=== PATIENT | female | born 1955 | race Caucasian/White ===

== ENCOUNTER → 2018-07-20 | Day surgery (SDC) | payer BC ==
[~2018-07-20] MED LIST: CALCIUM500 MG PO; FENTANYL CITRATE/PF 100MCG/2 ML INJ ONE; IBUPROFEN; IBUPROFEN PO; LISINOPRIL5 MG PO; METOPROLOL SUCC50 MG PO; MIDAZOLAM HCL 2 MG/2 ML VIAL ONE; MULTI-VITAMIN1 EACH PO; PROPOFOL IV EMULSION 10 MG/ML 50 ML VIAL ONE; TARCEVA150 MG PO; VIT D3 PO
--- OUTSIDE RECORDS SUMMARY | 2018-07-20 12:40 | XMS REPORT | Clinical Summary ---
Author Author [employer] [facility] Address Unknown Phone Unavailable Care Team Providers Care Home Mission Worker Name Role Phone Hugh Herring MD PCP Allergies Comments Active Allergy Reactions Severity Noted Date Pt stated that she still had delayed reaction with redness on her chest "like a sunburn" even with pre-meds of Prednisone 50mg PO x3 along with Benadryl 50mg PO x1. No other signs or symptoms per patient. 11/29/17: Okay to scan with IV contrast today per radiologist. Dr. Finley. Post CT scan: No signs or symptoms of reaction. Iodinated Contrast- Oral Rash Low 10/21/2015 And Iv Dye Medications End Date Status Medication Sig Dispensed Refills Start Date Active metoprolol succinate XL Take 12.5 mg 0 (TOPROL-XL) 25 mg 24 hr by mouth. 8 tablet Active lisinopril Take 5 mg by 0 (PRINIVIL,ZESTRIL) 5 mg mouth. 7 tablet Active Problems No known active problems Encounters Care Team Description Date Type Specialty Kandi Andres MD 05/29/2018 Telephone Obstetrics and Gynecology Yolanda Cummings MA 05/01/2018 Telephone Obstetrics and Gynecology Kandi Andres MD ASCUS with positive high risk HPV cervical (Primary Dx) 04/25/2018 Procedure visit Obstetrics and Gynecology Kandi Andres MD 04/13/2018 Telephone Obstetrics and Gynecology Yolanda Cummings MA 04/11/2018 Telephone Obstetrics and Gynecology Yolanda Cummings MA 04/10/2018 Telephone Obstetrics and Gynecology Kandi Andres MD Well woman exam with routine gynecological exam 04/07/2018 Hospital Radiology Encounter Kandi Andres MD Well woman exam with routine gynecological exam (Primary Dx); Screening for cervical cancer; Screening for breast cancer 04/03/2018 Office Visit Obstetrics and Gynecology after 07/19/2017 Family History Medical History Relation Name Comments Breast cancer Paternal Aunt Relation Name Status Comments Paternal Aunt Paternal Great Aunt Social History Date Tobacco Use Types Packs/Day Years Used Never Smoker Smokeless Tobacco: Never Used Tobacco Cessation: Counseling Given: No Alcohol Use Drinks/Week oz/Week Comments Yes Sex Assigned at Date Recorded Not on file Industry Job Start Date Occupation Not on file Not on file Not on file Travel End Travel History Travel Start No recent travel history available. Last Filed Vital Signs Time Taken Vital Sign Reading 04/25/2018 9:37 AM CDT Blood Pressure 139/82 04/25/2018 9:37 AM CDT Pulse 75 - Temperature - - Respiratory Rate - - Oxygen Saturation - - Inhaled Oxygen - Concentration 04/25/2018 9:37 AM CDT Weight 69.3 kg (152 lb 12.8 oz) 04/03/2018 2:59 PM CDT Height 167.6 cm (5' 6") 04/25/2018 9:37 AM CDT Body Mass Index 24.66 Plan of Treatment Health Maintenance Due Date Last Done Comments CERVICAL CANCER SCREENING 1976 COLON CANCER SCREENING 2005 SHINGRIX VACCINE (1 of 2) 2005 ZOSTER VACCINE 2015 INFLUENZA VACCINE 04/05/2018 06/05/2017 BREAST CANCER SCREENING 04/07/2020 04/07/2018 Procedures Comments Procedure Name Priority Date/Time Associated Diagnosis TISSUE, SPECIMEN C Routine 04/25/2018 10:02 AM CDT TISSUE, SPECIMEN B Routine 04/25/2018 10:02 AM CDT SURGICAL PATHOLOGY Routine 04/25/2018 ASCUS with positive high REQUEST 10:02 AM CDT risk HPV cervical TISSUE, SPECIMEN A Routine 04/25/2018 10:02 AM CDT HPV GENOTYPES 16,18 Routine 04/25/2018 9:36 AM CDT THINPREP TIS PAP Routine 04/25/2018 9:36 AM CDT HPV DNA, HIGH RISK, CERV Routine 04/25/2018 W/RFL GENOTYPES 16,18 9:36 AM CDT [place] COLPOSC,CERVIX W/ADJ Routine 04/25/2018 ASCUS with positive high VAG,W/BX & CURRETAG 9:30 AM CDT risk HPV cervical MAMMO BREAST SCREEN Routine 04/07/2018 Well woman exam with TOMOSYNTHESIS BILATERAL 12:32 PM CDT routine gynecological exam HPV GENOTYPES 16,18 Routine 04/03/2018 3:19 PM CDT THINPREP TIS PAP Routine 04/03/2018 3:19 PM CDT HPV DNA, HIGH RISK WITH Routine 04/03/2018 REFLEX TO GENOTYPES 16,18 3:19 PM CDT after 07/19/2017 Results * Tissue, specimen C (04/25/2018 10:02 AM CDT) Source 2 o'clock [facility] Procedure Comment: Biopsy [facility] Gross description: Comment: [facility] 2 o'clock, received in [facility] formalin, verified as to the patient's name and consists of one fragment(s) of rubbery, connell-kent, glistening tissue, measuring 0.25 x 0.15 x 0.1 cm.TS, one block. SK 04/26/2018 Micro description Comment: [facility] Microscopic examination [facility] supports the above diagnosis. Diagnosis Comment: [facility] Cervical mucosa with focus of [facility] low grade squamous intraepithelial lesion (mild squamous dysplasia, KIRSTEN 1). Comment Comment: [facility] The previous([id number]) [facility] and concurrent ([id number]) pap smears are reviewed. The findings of the biopsy would explain the atypical cells seen on the pap smears. Resulting Agency Comment Performing Organization Information: Site ID: [id number] Name: [facility], Address: [address] [place] [phone] Director: Virgilio Babb MD Performing Organization Address City/State/Zipcode Phone Number [facility] [address] [address] [facility] * Tissue, Specimen B (04/25/2018 10:02 AM CDT) Source [address] [facility] Procedure Comment: [facility] Gross description: Comment: [facility] 12 o'clock, received in [facility] formalin, verified as to the patient's name and consists of one fragment(s) of rubbery, connell-kent, glistening tissue, measuring 0.3 x 0.1 x 0.1 cm.TS, one block. Micro description Comment: [facility] Microscopic examination [facility] supports the above diagnosis. Diagnosis Comment: [facility] Fragments of benign [facility] endocervical mucosa with minute squamous metaplasia. No evidence of dysplasia or malignancy. Resulting Agency Comment Performing Organization Information: Site ID: [id number] Name: [facility], Address: [address] [place] [phone] Director: Virgilio Babb MD Performing Organization Address City/State/Zipcode Phone Number [facility] [place] [phone] [facility] * TISSUE, SPECIMEN A (04/25/2018 10:02 AM CDT) Source Comment: Endocervix [facility] (Curettage) [facility] Gross description: Comment: [facility], received in formalin, [facility] verified as to the patient's name and consists of multiple fragments of kent translucent mucus and soft tissue forming a loose aggregate measuring 0.4 x 0.4 x 0.1 cm. Tissue may not survive processing. TS, one block. Gross exam(s) performed at: [address] [address] [employer] Worker: VIRGILIO BABB MD Micro description Comment: [facility] Microscopic examination [facility] supports the above diagnosis. Diagnosis Comment: [facility] Fragments of benign [facility] endocervical mucosa admixed with mucoid material. No evidence of dysplasia or malignancy. Resulting Agency Comment Performing Organization Information: Site ID: [id number] Name: [facility], Address: [address] [place] [address] Director: Virgilio Babb MD Performing Organization Address City/[facility]/Zipcode Phone Number [facility] [employer] [address] [address] [facility] * Surgical pathology request (04/25/2018 10:02 AM CDT) Clinical information Comment: None given [employer] [facility] Pathologist Comment: [facility] Virgilio Babb MD, Board [facility] Certified in Anatomic Pathology, [phone] (electronic signature) Specimen Tissue Resulting Agency Comment Performing Organization Information: Site ID: [id number] Name: [employer] [facility], Address: [address] [place] [phone] Director: Virgilio Babb MD Performing Organization Address [facility] Phone Number [facility] [employer] [address] [address] [facility] * HPV DNA, High Risk, Cervical w/ reflex to Genotypes 16, 18 (04/25/2018 9:36 AM CDT) HPV high risk (ThinPrep) DETECTED (A) [facility] Comment: One or more High Risk HPV types (16,18,31,33,35,39,45,51,52, 56,58,59,66,68) was detected. REFERENCE RANGE: NOT DETECTED METHODOLOGY: Real-Time Polymerase Chain Reaction Resulting Agency Comment Performing Organization Information: Site ID: [id number] Name: [facility] Address: [address] [place] [address] [facility], [place] [address] Director: Ced Resendiz MD Performing Organization Address City/[facility]/Zipcode Phone Number [facility] [address] [place] [address] [phone] * HPV Genotypes 16, 18 (04/25/2018 9:36 AM CDT) Only the most recent of 2 results within the time period is included. HPV16 DNA, Invader(R) NOT DETECTED [facility] Comment: HPV type 16 DNA was undetectable or below the pre-set threshold. HPV18 DNA, Invader(R) NOT DETECTED [employer] Comment: HPV type 18 DNA was undetectable or below the pre-set threshold. REFERENCE RANGE: HPV 16: NOT DETECTED HPV 18: NOT DETECTED Methodology: Real-Time Polymerase Chain Reaction Resulting Agency Comment Performing Organization Information: Site ID: [id number] Name: [facility] Address: [address] [place] [phone] Director: Ced Resendiz MD Performing Organization Address City/State/Zipcode Phone Number [facility] [address] [place] [address] [phone] * THINPREP TIS PAP (04/25/2018 9:36 AM CDT) Only the most recent of 2 results within the time period is included. Clinical information None given [facility] Date of last menstrual NONE GIVEN [facility] period [facility] Prev. pap: NONE GIVEN [facility] Prev. bx: NONE [facility] Source Comment: Cervix, Endocervix [facility] Statement of adequacy Comment: [facility] Satisfactory for evaluation. [facility] Endocervical/transformation zone component present. General categorization (A)Comment: EPITHELIAL CELL [facility] ABNORMALITY [facility] Interpretation/result: (A) [facility] Comment: [facility] Atypical Squamous Cells of Undetermined Significance (ASC-US) Comment Comment: [facility] This case could not be [facility] evaluated with computer assisted technology. The slide was manually screened according to routine procedures. Suggest clinical correlation and follow-up as clinically appropriate Assistant Secretary Comment: [facility] DJL, CT (ASCP) [facility] CT screening location: [place] [address] [address], [facility] [address] Pathologist Comment: [facility] Virgilio Babb MD, Board [facility] Certified in Anatomic Pathology, [phone] (electronic signature) Comment Comment: [facility] EXPLANATORY NOTE: [facility] The Pap is a screening test for cervical cancer. It is not a diagnostic test and is subject to false negative and false positive results. It is most reliable when a satisfactory sample, regularly obtained, is submitted with relevant clinical findings and history, and when the Pap result is evaluated along with historic and current clinical information. Resulting Agency Comment Performing Organization Information: Site ID: [id number] Name: [facility], Address: [place] [address] Director: Virgilio Babb MD Performing Organization Address City/State/Zipcode Phone Number [facility] [address] [address] [facility] * Colposcopy (04/25/2018 9:30 AM CDT) Narrative Performed At Kandi Andres MD 04/25/2018 10:05 AM Colposcopy Date/Time: 04/25/2018 10:02 AM Performed by: KANDI ANDRES Authorized by: KANDI ANDRES Consent: Consent obtained:Verbal and written Consent given by:Patient Procedural risks discussed:Bleeding, infection and repeat procedure Patient questions answered: yes Patient agrees, verbalizes understanding, and wants to proceed: yes Educational handouts given: yes Instructions and paperwork completed: yes Pre-procedure: Pre-procedure timeout performed: yes Negative urine test: yes Prepped with: acetic acid Indication: Indication:ASC-US and HPV Positive Procedure: Procedure: Colposcopy of cervix w/ cervical biopsy and ECC Under satisfactory analgesia the patient was prepped and draped in the dorsal lithotomy position: yes Speculum was placed in the vagina: yes Under colposcopic examination the transition zone was seen in entirety: yes Intracervical block was performed: no Endocervix was curetted using a Kevorkian curette: yes Cervical biopsy performed with a cervical biopsy punch: yes Tampon inserted: no Monsel's solution was applied: yes Biopsy(s): yes Location:12:00 and 2:00 Specimen to pathology: yes Post-procedure: Findings: White epithelium Impression: Normal colposcopy Patient tolerance of procedure:Patient tolerated the procedure well with no immediate complications * Mammo Breast Screen Tomosynthesis Bilateral (04/07/2018 12:32 PM CDT) Narrative Performed At PROCEDURE:MAMMO BREAST SCREEN TOMOSYNTHESIS BILATERAL04/07/2018 12:10 PM RADIANT This patient's mammogram was interpreted with the assistance of computer-aided detection (CAD). Digital breast tomosynthesis (3D) imaging was performed. CLINICAL HISTORY:63-year-old female referred for screening mammogram.She reports no new or current breast complaints. COMPARISON:None available. BREAST DENSITY:There are scattered areas of fibroglandular density. DIGITAL SCREENING MAMMOGRAPHY FINDINGS: There are no dominant masses, suspicious microcalcifications or unexplained architectural distortion to suggest malignancy. IMPRESSION: BI-RADS Category 1-Negative. RECOMMENDATION: Comparison with physical examination and annual mammography. This facility is accredited by The [employer] for Mammography. A negative x-ray report should not delay biopsy if a dominant or clinically suspicious mass is present. Not all cancers are identified by x-ray. [id number] The results of this exam have been sent to the patient. Performing Organization Address City/[facility] Centercode Phone Number [facility] [address] [place] [address] * HPV DNA, High Risk with Reflex to Genotypes 16,18 (04/03/2018 3:19 PM CDT) HPV high risk (ThinPrep) DETECTED (A) [employer] Comment: High-Risk HPV types 16, 18, 31, 33, 35, 39, 45, 51, 52, 56, 58, 59, or 68 may cause cervical cancer or its precursors. REFERENCE RANGE: HPV DNA HIGH RISK: NOT DETECTED Methodology: Digene Hybrid Capture II The analytical performance characteristics of this assay have been determined by [facility]. The modifications have not been cleared or approved by the FDA. This assay has been validated pursuant to the CLIA regulations and is used for clinical purposes. Resulting Agency Comment Performing Organization Information: Site ID: [id number] Name: [facility] Address: [address] [place] [phone] Director: Ced Resendiz MD Performing Organization Address City/State/Zipcode Phone Number [facility] [address] [place] [address] [phone] after 07/19/2017 Insurance Payer Benefit Subscriber ID Type Phone Address Plan / Group BCBS BCBS xxxxxxxxxxxx PPO CHOICE PPO/JADE OZUNA PPO Advance Directives Patient has advance care planning documents on file. For more information, clem cardoso contact: [address] [place] [address]
--- OUTSIDE RECORDS SUMMARY | 2018-07-20 12:40 | XMS REPORT ---
Author Author [facility] Address Unknown Phone Unavailable Care Team Providers Care Internship Coordinator Name Role Phone Doris [place] Unavailable Unavailable Problems This patient has no known problems. Allergies, Adverse Reactions, Alerts This patient has no known allergies or adverse reactions. Medications This patient has no known medications. Encounters Start Date/Time End Date/Time Encounter Type Admission Type Attending [facility] Care Facility Care Department Encounter ID 2016-11-10 14:56:00 2016-12-31 23:59:00 Outpatient [facility] [place] [id number]
[2018-07-20 13:24] LABS: BASOPHILS % 0.4 % (0.0-1.0); EOSINOPHILS # (AUTO) 0.1 (0.0-0.4); EOSINOPHILS % 1.3 % (0.0-6.0); HEMATOCRIT 41.1 % (34.2-44.1); HEMOGLOBIN 13.4 g/dL (12.0-16.0); LYMPHOCYTES % 17.7 % (18.0-39.1); MEAN CORPUSCULAR HEMOGLOBIN 29.8 pg (28-32); MEAN CORPUSCULAR HGB CONC 32.6 g/dL (31-35); MEAN CORPUSCULAR VOLUME 91.5 fL (81-99); MONOCYTES # (AUTO) 0.6 (0.2-0.8); MONOCYTES % 10.9 % (4.4-11.3); NEUTROPHILS # (AUTO) 3.9 (2.1-6.9); NEUTROPHILS % 69.3 % (38.7-80.0); PLATELET COUNT 286 x10e3/uL (140-360); RED BLOOD COUNT 4.49 x10e6/uL (3.6-5.1); RED CELL DISTRIBUTION WIDTH 13.6 % (11.7-14.4)
[2018-07-20 17:50] VITALS: BP 120/78
--- NOTE | 2018-07-20 18:13 | Operative Report ---
DATE OF PROCEDURE: July 20, 2018 REFERRING PHYSICIAN: Dr. Fatuma Herring. PROCEDURE PERFORMED: Colonoscopy and polypectomy. INDICATIONS FOR COLONOSCOPY: Surveillance colonoscopy. Personal history of colon polyps. MEDICATION: Patient was done under MAC. Please see anesthesiologist's note. PROCEDURE: With the patient in the left lateral decubitus position, the flexible fiberoptic Olympus colonoscope was inserted into the rectum with ease and advanced all the way to the cecum. It was then withdrawn slowly. Mucosa overlying the cecum, ascending colon, transverse colon and descending colon grossly appeared to be within normal limits. Three polyps were hot biopsied from the sigmoid colon. Two polyps were hot biopsied from the rectum. The scope was then retroflexed into the distal rectum and small internal hemorrhoids were noted, none of which was actively bleeding. The scope was then straightened out. It was subsequently withdrawn. Patient tolerated the procedure well. IMPRESSION: 1. Sigmoid colon polyps times 3, hot biopsied. 2. Rectal polyps times 2, hot biopsied. 3. Internal hemorrhoids, none actively bleeding. PLAN: Follow up histology. Initiate high-fiber low-fat diet. Initiate high-fiber supplement. Patient will need a followup colonoscopy in 3 to 5 years. Job#: [id number] EV cc:FATUMA HERRING MD
== END | disposition home or self-care (01) ==
LOC: OR 12:30
PROVIDERS: ATTEND Internal Medicine Gastroenterology
DX: Z12.11 Encounter for screening for malignant neoplasm of colon (principal); K63.5 Polyp of colon; K62.1 Rectal polyp; K64.8 Other hemorrhoids; K21.9 Gastro-esophageal reflux disease without esophagitis; I48.91 Unspecified atrial fibrillation; I10 Essential (primary) hypertension; M19.90 Unspecified osteoarthritis, unspecified site; Z91.041 Radiographic dye allergy status; Z01.810 Encounter for preprocedural cardiovascular examination; Z85.118 Personal history of other malignant neoplasm of bronchus and lung; Z92.21 Personal history of antineoplastic chemotherapy; Z92.3 Personal history of irradiation
CPT/HCPCS: 36415; 45384; 85025; 93005; J2250